=== PATIENT | female | born 1975 | race Caucasian/White ===

== ENCOUNTER 2016-12-05 14:24 | Inpatient (IN) | payer MEDICAID, OTHER ==
--- NOTE | 2016-12-05 14:34 | ED ---
General Adult HPI - General Chief complaint: Psychiatric Symptoms Stated complaint: Petition, Mental Health Time Seen by Provider: 12/05/16 14:26 Source: patient, police, RN notes reviewed - History of Present Illness Initial comments: 41-year-old female presenting for psychiatric evaluation. Patient has history of psychiatric disease. I did discussed with the social services specialist, Frankie, who was involved in the case and wrote the petition. He states he talked with the patient's daughter who states she has history of psychiatric disease. She also has history of extensive substance abuse. Patient today is presenting for likely psychosis. She has apparently been homeless and wandering and stayed with a friend who admits to doing cocaine with her recently. There is concern she may have been using methamphetamine as well. Patient stated to the social services specialist she was hearing voices and was responding to internal stimuli. During my interview with patient she denies any history of psychiatric disease. She denies any drug abuse. She states that she came in because her " emphysema is acting up." She states that "it's gone from 0-64 over the past 3 days." I asked her what this meant, she states that it was an emphysema scale that I should know. She denies taking any medications for any medical problems this time. She is unable to provide any reliable history at this time. - Related Data Home Medications Medication Instructions Recorded Confirmed No Known Home Medications [No 12/05/16 12/05/16 Known Home Medications] Allergies Allergy/AdvReac Type Severity Reaction Status Date / Time codeine Allergy Unknown Verified 12/05/16 15:38 Review of Systems ROS Statement: Those systems with pertinent positive or pertinent negative responses have been documented in the HPI. ROS Other: All systems not noted in ROS Statement are negative. Past Medical History Additional Past Medical History / Comment(s): murmur History of Any Multi-Drug Resistant Organisms: None Reported Past Surgical History: Orthopedic Surgery Additional Past Surgical History / Comment(s): NovaSure, right rotator cuff repair 2 Past Psychological History: Anxiety Smoking Status: Current every day smoker Past Alcohol Use History: Occasional Past Drug Use History: Methamphetamine General Exam - General Exam Comments Initial Comments: General: Awake and Alert. No acute distress. Does not appear acutely ill. Eyes: TEJAL, EOM intact. No nystagmus. No scleral icterus. HENT: Atraumatic, normocephalic. Mucous membranes moist. Trachea midline. Neck: The neck is supple, there is no tenderness or JVD. Cardiovascular: Regular rate and rhythm. No murmur, rub, or gallop is appreciated. Distal pulses intact. Respiratory: Lungs are clear to auscultation bilaterally. Mild wheezes. No rales, rhonchi. No respiratory distress. Gastrointestinal: Soft, Nontender. No rebound or guarding. Non-distended. No masses or organomegaly noted. No CVA tenderness. Musculoskeletal: No tenderness. Normal ROM. No gross deformity. No strength deficits. Neurological: A&Ox3. CN II-XII grossly intact, There are no obvious motor or sensory deficits. Coordination appears grossly intact. Speech is normal. Skin: Skin is warm and dry and no rashes or lesions are noted. Psychiatric: Cooperative. Blunt affect. Delusional with tangential thought process. Appears paranoid. Denies SI/HI or hallucinations at this time, but not trustful of me during interview. Course Vital Signs 12/05/16 12/05/16 12/05/16 14:32 14:56 15:04 Temperature 98.7 F Pulse Rate 99 72 72 Respiratory 16 Rate Blood Pressure 133/83 O2 Sat by Pulse 98 Oximetry Medical Decision Making - Medical Decision Making 41-year-old female presenting for psychiatric evaluation. Per social services specialist, patient has extensive psychiatric history as well as polysubstance abuse history. The patient does not admit to this on her interview. However she does appear to be delusional and paranoid currently. She is having difficulty staying on topic. She is fixated on her emphysema and a scale of 0-100 that I' m not familiar with. I did order a chest x-ray and a breathing treatment for her at this time. Patient states she is homeless but she "has places to go." She denies any homicidal or suicidal ideations this time. She denies any hallucinations. However per social services specialist history she was very paranoid and concerned that voices were being put into her head. CXR no acute process Labwork with mild leukcotysos which is likely reactive and related to methamphetamine use. Also with mild hypoK which was replaced. UDS positive for methamphetamine. negative. Pt medically cleared for behavioral health evaluation. Patient was evaluated by behavioral health social services specialist and deemed a candidate for inpatient psychiatric treatment. Patient was placed on elopement precautions. Clinical certificate was completed by myself. Patient remains acutely delusional and paranoid. Concern for acute psychosis as well as polysubstance abuse. We will continue to monitor the ER pending final disposition and placement. Pt was accepted inpatient and transferred to inpatient psych floor. - Lab Data Result diagrams: 12/05/16 14:56 12/05/16 14:56 Lab Results 12/05/16 12/05/16 12/05/16 Range/Units 14:56 14:56 14:56 WBC 12.2 H (3.8-10.6) k/uL RBC 4.70 (3.80-5.40) m/uL Hgb 12.9 (11.4-16.0) gm/dL Hct 38.7 (34.0-46.0) % MCV 82.3 (80.0-100.0) fL MCH 27.4 (25.0-35.0) pg MCHC 33.3 (31.0-37.0) g/dL RDW 12.7 (11.5-15.5) % Plt Count 263 (150-450) k/uL Neutrophils % 70 % Lymphocytes % 21 % Monocytes % 6 % Eosinophils % 2 % Basophils % 0 % Neutrophils # 8.5 H (1.3-7.7) k/uL Lymphocytes # 2.6 (1.0-4.8) k/uL Monocytes # 0.7 (0-1.0) k/uL Eosinophils # 0.2 (0-0.7) k/uL Basophils # 0.1 (0-0.2) k/uL Sodium 138 (137-145) mmol/L Potassium 3.4 L (3.5-5.1) mmol/L Chloride 100 (98-107) mmol/L Carbon Dioxide 24 (22-30) mmol/L Anion Gap 14 mmol/L BUN 13 (7-17) mg/dL Creatinine 0.63 (0.52-1.04) mg/dL Est GFR (MDRD) Af Amer >60 (>60 ml/min/1.73 sqM) Est GFR (MDRD) Non-Af >60 (>60 ml/min/1.73 sqM) Glucose 92 (74-99) mg/dL Calcium 9.6 (8.4-10.2) mg/dL Total Bilirubin 0.6 (0.2-1.3) mg/dL AST 30 (14-36) U/L ALT 38 (9-52) U/L Alkaline Phosphatase 43 (38-126) U/L Total Protein 7.7 (6.3-8.2) g/dL Albumin 4.6 (3.5-5.0) g/dL Urine Color Urine Appearance (Clear) Urine pH (5.0-8.0) Ur Specific [place] (1.001-1.035) Urine Protein (Negative) Urine Glucose (UA) (Negative) Urine Ketones (Negative) Urine Blood (Negative) Urine Nitrate (Negative) Urine Bilirubin (Negative) Urine Urobilinogen (<2.0) mg/dL Ur Leukocyte Esterase (Negative) Urine RBC (0-5) /hpf Urine WBC (0-5) /hpf Ur Squamous Epith Cells (0-4) /hpf Urine Mucus (None) /hpf Urine HCG, Qual (Not Detectd) Urine Opiates Screen Not Detected (NotDetected) Ur Oxycodone Screen Not Detected (NotDetected) Urine Methadone Screen Not Detected (NotDetected) Ur Propoxyphene Screen Not Detected (NotDetected) Ur Barbiturates Screen Not Detected (NotDetected) U Tricyclic Antidepress Not Detected (NotDetected) Ur Phencyclidine Scrn Not Detected (NotDetected) Ur Amphetamines Screen Not Detected (NotDetected) U Methamphetamines Scrn Detected H (NotDetected) U Benzodiazepines Scrn Not Detected (NotDetected) Urine Cocaine Screen Not Detected (NotDetected) U Marijuana (THC) Screen Not Detected (NotDetected) 12/05/16 12/05/16 Range/Units 14:56 14:56 WBC (3.8-10.6) k/uL RBC (3.80-5.40) m/uL Hgb (11.4-16.0) gm/dL Hct (34.0-46.0) % MCV (80.0-100.0) fL MCH (25.0-35.0) pg MCHC (31.0-37.0) g/dL RDW (11.5-15.5) % Plt Count (150-450) k/uL Neutrophils % % Lymphocytes % % Monocytes % % Eosinophils % % Basophils % % Neutrophils # (1.3-7.7) k/uL Lymphocytes # (1.0-4.8) k/uL Monocytes # (0-1.0) k/uL Eosinophils # (0-0.7) k/uL Basophils # (0-0.2) k/uL Sodium (137-145) mmol/L Potassium (3.5-5.1) mmol/L Chloride (98-107) mmol/L Carbon Dioxide (22-30) mmol/L Anion Gap mmol/L BUN (7-17) mg/dL Creatinine (0.52-1.04) mg/dL Est GFR (MDRD) Af Amer (>60 ml/min/1.73 sqM) Est GFR (MDRD) Non-Af (>60 ml/min/1.73 sqM) Glucose (74-99) mg/dL Calcium (8.4-10.2) mg/dL Total Bilirubin (0.2-1.3) mg/dL AST (14-36) U/L ALT (9-52) U/L Alkaline Phosphatase (38-126) U/L Total Protein (6.3-8.2) g/dL Albumin (3.5-5.0) g/dL Urine Color Light Yellow Urine Appearance Cloudy H (Clear) Urine pH 5.5 (5.0-8.0) Ur Specific [place] 1.006 (1.001-1.035) Urine Protein Negative (Negative) Urine Glucose (UA) Negative (Negative) Urine Ketones Negative (Negative) Urine Blood Small H (Negative) Urine Nitrate Negative (Negative) Urine Bilirubin Negative (Negative) Urine Urobilinogen <2.0 (<2.0) mg/dL Ur Leukocyte Esterase Negative (Negative) Urine RBC 2 (0-5) /hpf Urine WBC 1 (0-5) /hpf Ur Squamous Epith Cells 5 H (0-4) /hpf Urine Mucus Rare H (None) /hpf Urine HCG, Qual Not Detected (Not Detectd) Urine Opiates Screen (NotDetected) Ur Oxycodone Screen (NotDetected) Urine Methadone Screen (NotDetected) Ur Propoxyphene Screen (NotDetected) Ur Barbiturates Screen (NotDetected) U Tricyclic Antidepress (NotDetected) Ur Phencyclidine Scrn (NotDetected) Ur Amphetamines Screen (NotDetected) U Methamphetamines Scrn (NotDetected) U Benzodiazepines Scrn (NotDetected) Urine Cocaine Screen (NotDetected) U Marijuana (THC) Screen (NotDetected) - Radiology Data Radiology results: report reviewed, image reviewed Disposition Clinical Impression: Acute psychosis, Paranoia, Methamphetamine abuse Disposition: ADMITTED IP TO THIS [facility] Condition: Stable
[2016-12-05] MEDS ORDERED: IPRATROPIUM-ALBUTEROL 3 ML NEB INHALATION STA (14:47)
[2016-12-05 15:08] LABS: Basophils # (A) 0.1 k/uL (0-0.2); Basophils % (A) 0 %; CH 27.8; CHCM 33.8; Eosinophils # (A) 0.2 k/uL (0-0.7); Eosinophils % (A) 2 %; HCT 38.7 % (34.0-46.0); HDW 2.29; HGB 12.9 gm/dL (11.4-16.0); Luc # (Auto) 0.19; Luc % (Auto) 2; Lymphocytes # (A) 2.6 k/uL (1.0-4.8); Lymphocytes % (A) 21 %; MCH 27.4 pg (25.0-35.0); MCHC 33.3 g/dL (31.0-37.0); MCV 82.3 fL (80.0-100.0); Mean Platelet Volume 7.3; Monocytes # (A) 0.7 k/uL (0-1.0); Monocytes % (A) 6 %; Neutrophils # (A) 8.5 k/uL (1.3-7.7); Neutrophils % (A) 70 %; RDW 12.7 % (11.5-15.5); WBC 12.2 k/uL (3.8-10.6); WBC (Perox) 12.28
[2016-12-05 15:17] LABS: ALT 38 U/L (9-52); AST 30 U/L (14-36); Alkaline Phosphatase 43 U/L (38-126); Anion Gap 14 mmol/L; Blood Urea Nitrogen 13 mg/dL (7-17); Calcium 9.6 mg/dL (8.4-10.2); Carbon Dioxide 24 mmol/L (22-30); Chloride 100 mmol/L (98-107); Glucose 92 mg/dL (74-99); Non-African American GFR(MDRD) >60 (>60 ml/min/1.73 sqM); Potassium 3.4 mmol/L (3.5-5.1); Sodium 138 mmol/L (137-145); Total Bilirubin 0.6 mg/dL (0.2-1.3); Total Protein 7.7 g/dL (6.3-8.2)
--- NOTE | 2016-12-05 15:41 | XR ---
EXAMINATION TYPE: XR chest 2V DATE OF EXAM: 12/05/2016 3:28 PM COMPARISON: NONE HISTORY: Asthma. Chest pain TECHNIQUE: Frontal and lateral views of the chest are obtained. FINDINGS: Heart and mediastinum are normal. Lungs are clear. Diaphragm is normal. Bony thorax is int act. IMPRESSION: Normal chest
[2016-12-05] MEDS ORDERED: POTASSIUM CHLORIDE ER 20 MEQ TAB.ER PO STA (15:53)
[2016-12-05] MEDS ORDERED: MAG HYDROX/AL HYDROX/SIMETH 30 ML CUP PO PRN (17:15)
[2016-12-05 17:40] LABS: Appearance,Urine Cloudy (Clear); Bilirubin,Urine Negative (Negative); Glucose,Urine (UA) Negative (Negative); Ketones,Urine Negative (Negative); Leukocyte Esterase,Urine Negative (Negative); Mucus,Urine Rare /hpf; Nitrite,Urine Negative (Negative); PH, Urine 5.5 (5.0-8.0); Particle Count 4627; Protein,Urine Negative (Negative); RBC,Urine 2 /hpf (0-5); Specific Gravity,Urine 1.006 (1.001-1.035); Squamous Epithelial Cell,Urine 5 /hpf (0-4); UA Billing (MACRO vs. MICRO) MICRO; Urobilinogen,Urine <2.0 mg/dL (<2.0); WBC,Urine 1 /hpf (0-5)
[2016-12-05] MEDS: OLANZapine 5 MG TAB PO SCH ×2 (20:22→21:05)
[2016-12-05] MEDS ORDERED: ACETAMINOPHEN TAB 325 MG TAB PO PRN (20:25)
[2016-12-06] MEDS: OLANZapine 5 MG TAB PO SCH ×2 (08:48→21:10)
--- NOTE | 2016-12-06 10:38 | P.HPMEDMHU ---
History of Present Illness H&P Date: 12/06/16 Chief Complaint: Pschosis This is a 41-year-old female with no primary care physician and no previous medical history except for chronic drug use and dependence as well as a chronic substance abuse including methamphetamine, patient was brought into the emergency department at [facility] because she stated that she has been depressed and she has been having racing thoughts and she was very unstable and according to the daughter based on the conversation that happened in the emergency department with the emergency physician she had a long history of psychiatric illness with significant substance abuse and patient turned herself and for help after she got out her daughter's house that she was living with. Patient is doing okay she appears to have no acute distress at this time. She is complaining of some shortness of breath and she is asking for nebulized treatment. Review of Systems Constitutional: Denies chills, Denies chronic headaches, Denies lethargy, Denies malaise, Denies weight gain, Denies weight loss Eyes: denies blurred vision, denies bulging eye, denies decreased vision Ears: deny: decreased hearing Ears, nose, mouth and throat: Denies dysphagia, Denies neck lump, Denies swelling in throat, Denies sore throat Cardiovascular: Reports shortness of breath, Denies chest pain, Denies decreased exercise tolerance, Denies dyspnea on exertion, Denies syncope Respiratory: Denies congestion, Denies cough, Denies cough with sputum, Denies home oxygen, Denies sleep apnea, Denies snoring, Denies wheezing Gastrointestinal: Denies abdominal pain, Denies bloating, Denies BRBPR, Denies hematemesis, Denies hematochezia, Denies melena, Denies nausea, Denies vomiting Genitourinary: Denies dysuria, Denies hematuria Musculoskeletal: Denies myalgias Musculoskeletal: absent: ankle pain, ankle stiffness, ankle swelling, elbow pain , elbow stiffness, elbow swelling, foot pain, foot stiffness, foot swelling, hand pain, hand stiffness, hand swelling, hip pain, hip stiffness, hip swelling , knee pain, knee stiffness, knee swelling, shoulder pain, shoulder stiffness, shoulder swelling, wrist pain, wrist stiffness, wrist swelling Integumentary: Denies pruritus, Denies rash Neurological: Denies numbness, Denies weakness Psychiatric: Reports anxiety, Reports depression, Reports difficulty concentrating, Reports irritability, Reports sadness/tearfulness, Reports sleep disturbances, Denies suicidal ideation Endocrine: Denies fatigue, Denies weight change Past Medical History Additional Past Medical History / Comment(s): Chronic tobacco use and dependence , substance abuse. History of Any Multi-Drug Resistant Organisms: None Reported Past Surgical History: Orthopedic Surgery Additional Past Surgical History / Comment(s): NovaSure ablation in 2011, right rotator cuff repair 2, tubal ligation, basal cell cancer removed from the left side of the Past Psychological History: Anxiety Smoking Status: Current every day smoker (Patient smokes about half a pack every day she started smoking when she was 59-year-old. She smokes marijuana as well. She stated that she is to have a card .) Past Alcohol Use History: Occasional Past Drug Use History: Methamphetamine - Past Family History Mother Family Medical History: No Reported History (Mother is a 55-year-old has no major medical problems she did not want to talk about her mother.) Father Family Medical History: No Reported History (Father is 58-year-old no major medical problems.) Sister(s) Family Medical History: No Reported History (Patient has one sister no major medical problems) Daughter(s) Family Medical History: No Reported History (Patient has 2 daughters no major medical problems) Son(s) Family Medical History: No Reported History (Patient has one son no major medical problems) Medications and Allergies Home Medications Medication Instructions Recorded Confirmed Type No Known Home Medications [No 12/05/16 12/05/16 History Known Home Medications] Allergies Allergy/AdvReac Type Severity Reaction Status Date / Time codeine Allergy Unknown Verified 12/05/16 15:38 Physical Exam Vitals: Vital Signs Temp Pulse Pulse Pulse Resp BP BP 12/06/16 06:42 97.9 F 82 16 96/57 12/05/16 18:49 98.1 F 98 15 12/05/16 17:51 97.9 F 78 16 135/70 BP Pulse Ox 12/06/16 06:42 12/05/16 18:49 96/71 97 12/05/16 17:51 99 Intake and Output 12/05/16 12/06/16 12/06/16 22:59 06:59 14:59 Other: Weight 56.6 kg - Constitutional General appearance: no acute distress, thin - EENT Eyes: anicteric sclerae, PERRLA, no ptosis, no scleral icterus, normal appearance ENT: hearing grossly normal, NA/AT, normal oropharynx, no thrush Ears: bilateral: normal - Neck Neck: no lymphadenopathy, normal ROM, no rigidity, no stridor, no thyromegaly Carotids: bilateral: upstroke normal Thyroid: bilateral: normal size - Respiratory Respiratory: bilateral: diminished, negative: dullness, rales, rhonchi, wheezing , prolonged expiration - Cardiovascular Rhythm: regular Heart sounds: normal: S1, S2 Abnormal Heart Sounds: no systolic murmur, no S3 Gallop, no S4 Gallop, no click - Gastrointestinal General gastrointestinal: soft, no splenomegaly, no tenderness, no umbilical hernia, no ventral hernia - Integumentary Integumentary: normal, normal turgor - Neurologic Neurologic: CNII-XII intact - Musculoskeletal Musculoskeletal: gait normal, strength equal bilaterally - Psychiatric Psychiatric: A&O x's 3, no appropriate affect, no intact judgment & insight Cranial Nerve Examination - Cranial Nerves Cranial Nerve I- Olfactory: Intact Cranial Nerve II- Optic: Intact Cranial Nerve III- Oculomotor: Intact Cranial Nerve IV- Trochlear: Intact Cranial Nerve V- Trigeminal: Intact Cranial Nerve - Abducens: Intact Cranial Nerve VII- Facial: Intact Cranial Nerve VIII- Auditory: Intact Cranial Nerve IX- Glossopharyngeal: Intact Cranial Nerve X- Vagus: Intact Cranial Nerve XI- Accessory: Intact Cranial Nerve XII- Hypoglossal: Intact Results CBC & Chem 7: 12/05/16 14:56 12/05/16 14:56 Assessment and Plan Plan: Assessment and plan: 1. Psychosis possibly related to substance abuse. Admitted to the mental health unit, patient will be evaluated by psychiatry. Patient was already started on Zyprexa 5 mg orally twice every day. 2. Chronic tobacco use and dependence. Smoking cessation and counseling an increased risk of CAD, CVA, and malignancy, start the patient on DuoNeb 3 mg nebulization three times every day. 3. Substance abuse. Abstinence from amphetamine. 4. Thanks for the consult we will follow with you.
[2016-12-06] MEDS: IPRATROPIUM-ALBUTEROL 3 ML NEB INHALATION PRN ×2 (11:10→21:23)
--- NOTE | 2016-12-06 13:56 | HP ---
DATE OF ADMISSION: 12/05/2016 DATE OF SERVICE: 12/05/2016 IDENTIFYING DATA: Patient is a 41-year-old female, 1975. She is homeless. She apparently was brought to the emergency room for evaluation by police. Her daughter was with her for part of the ER evaluation. CHIEF COMPLAINT: Patient has had long-term psychiatric and substance abuse issues. She apparently is homeless. She had been doing abusive substances recently including cocaine and methamphetamine within 1 or 2 days of admission. She was appearing confused and psychotic. HISTORY OF PRESENTING ILLNESS: Patient is not able to provide a reliable history. Information that was presented to me in the emergency room was that the patient is homeless. She apparently had gone into someone's home that she described as "friends." There is question as to whether she actually knew the people in the home. Apparently, the people called police and she was brought to the hospital. She was disorganized in her thoughts. She was confused. She appeared to be responding to internal stimuli. She apparently has been homeless for a period of time and recently was wandering in the community. A friend of hers did cocaine with her in the last couple days. There was a suggestion that she may have used methamphetamine which it was confirmed on the urine drug screen. She was appearing to hear voices and responding to some internal stimuli. Her responses to basic questions were vague and disconnected. Apparently her daughter had provided information to the emergency room that she has a long history of psychiatric and substance abuse issues. No further details were provided. She is admitted for further evaluation. SUBSTANCE USE HISTORY: As above. PAST MEDICAL HISTORY: Patient makes repeat references to having emphysema though there is no confirmation of this. Further medical history, review of systems and physical exam as per Dr. Jones. FAMILY AND SOCIAL HISTORY: No information available. MENTAL STATUS EXAM: Patient was in the bed in the emergency room. She was sitting up, she appeared disheveled. Eye contact was fair. She was restless. She had a somewhat frightened distressed look. She responded to questions, though her answers were vague and at times disconnected from the questions asked. She was ambulatory, she was able to walk to the bathroom and back. She was able to comprehend information that I presented her in regards to the admission. She otherwise was unable to provide any coherent information about recent or remote events. Her affect was intense. Her mood depressed. She was significantly distressed. She did cooperate with the interview and plans to be moved to the psychiatric unit, though initially she was resistant to any intervention. There was no immediate evidence for thought disorder. There was no indication for thoughts of harm to self or others. On cognitive exam, patient was not able to cooperate or respond to any questions. She was reasonably aware of her immediate surroundings. She could comprehend information. She could follow basic directions. She was able to find herself to the bathroom and back. She was ambulatory without clear gait disturbance. ASSESSMENT: This 41-year-old female apparently has significant psychiatric issues, though details are unavailable. She had recent use of at least methamphetamine and possibly cocaine as well. There are some indications that she may have psychotic symptoms, social support network is uncertain. Strengths include her ability to cooperate and comprehend information provided to her. Weakness includes disordered thinking. DIAGNOSES: 1. Acute psychotic episode. 2. Methamphetamine abuse, rule out cocaine abuse. RECOMMENDATIONS: Patient will be admitted for comprehensive medical, psychiatric and psychosocial evaluation. Will make efforts to engage the patient in individual and group therapeutic activities. The patient is showing significant restlessness and disordered thinking. I will start the patient on Zyprexa 5 mg twice a day. The aim of Zyprexa is to help reduce psychotic symptoms and improve thought process. We will monitor closely for any general substance use withdrawal issues and make efforts to gather further history. We will focus on stabilization and discharge planning.
[2016-12-07] MEDS: OLANZapine 5 MG TAB PO SCH ×2 (08:57→20:43)
--- NOTE | 2016-12-07 08:59 | P.PN ---
Progress Note - Text Interval history: The patient is found in her room she follows me to an interview room. She was admitted yesterday to the mental health unit through the emergency room. Dr. Diana evaluated the patient yesterday. I did review documentation from her last admission here in March 2016. She states that she is previously diagnosed with bipolar disorder Dr. Garcia had diagnosed her with delusional disorder. She states that she presents to the hospital this time by the police as she was disruptive and was demonstrating odd behavior. She states she does not recall what she was saying and she becomes visibly upset when I ask her to describe the presenting symptoms. She was positive for methamphetamine and she reports doing at least 2 lines of methamphetamine recently. She reports she has not been sleeping and eating and her moods and depressed. She reports no acute suicidal ideation. The patient is somewhat guarded and defensive during the interview. She is endorsing no other symptoms but is likely under reporting them. Mental status exam: The patient is alert she is mildly disheveled eye contact is intermittent. There are portions were she goes several minutes without making eye contact and looks away to the left. Speech is fluent and spontaneous mildly pressured at times. Affect demonstrates some lability as she is easily tearful several times throughout the session, appears defensive at times, and can demonstrate smiling at times. She reports a depressed mood, she denies having any acute suicidal or homicidal ideation. She is endorsing no other symptoms but there appears to be a likely possibility of psychotic symptoms. Insight and judgment are impaired. She is oriented to person place and date. Plan: The patient will continue on the Zyprexa 5 mg twice daily which was started yesterday. The patient was stabilized on this medication during her last hospitalization. She requires continued psychiatric evaluation. She is encouraged to participate in the milieu we will monitor for safety. Social work will meet with her for a psychosocial assessment. She states that she is homeless and has no outpatient psychiatric care arranged. It appears after her last hospitalization she went to [place]. Lab values reviewed vital signs reviewed.
--- NOTE | 2016-12-07 11:55 | PN ---
DATE OF SERVICE: 12/06/2016. CHIEF COMPLAINT: Patient has had long-term psychiatric and substance abuse issues. She apparently is homeless. She had been doing abusive substances recently including cocaine and methamphetamine within 1 or 2 days of admission. She was appearing confused and psychotic. INTERVAL HISTORY: Patient had a quiet evening last night. Most of the she stayed in her room. She slept fairly well. Today, again she spent most of her time in her room. She comes out for meals. She hasn't attended groups. Yesterday she had made some statements that were delusional including the idea that there was a cell phone implanted in someone. It wasn't clear what the specifics were of that. She had disorganized thoughts. Today she is doing better. She will respond appropriately to staff. She seems to be a little calmer overall. In review of history, she day psychiatric admission here March 29, 2016, during that admission and it was noted that she was admitted on petition. She had made statements about wanting to harm something or herself. She apparently was in quite agitated state, on admission she had thrown a television because it was not working. She had smashed mirrors and other things in her room. She was heard in her room yelling and threatening. She was making statements that her mother and father were not going to kill her. She had locked herself in her bedroom at one point. Police were called. She has other disorganized behavior. Effexor that for the she had locked herself in her bedroom it but it was not on the unit that he take that part out. According to the admission note, she reported no prior psychiatric hospitalization or other mental health intervention. Apparently going back to around age 14 she got into significant drug use. She apparently has had long-term substance abuse issues, primarily stimulants, though she has had at least one DUI and had an accident while intoxicated relating to a 10 month [facility] term. She was diagnosed with delusional disorder. When I talked to the patient today, she initially was denying any significant problems, though she became distressed and was unable to continue the conversation. There is no change in her general health. She tolerates her psychotropic medications. MENTAL STATUS: Patient was in her room lying down. When I came in, she set up on the edge of her bed saying she was is fine. She looked relax she smiled a little. As I started asking questions she made some comments that she did not want to go back in her history that she could only look forward. When I made an effort to explain the importance of understanding some of her history she became upset and angry. She said she would only talked later once she was fully and could calm herself down. He essentially requested that I end the interview . It is noted that I came back later to review issues about involuntary hospitalization versus her sign a voluntary admission form. She said she understood the issues and was comfortable with signing voluntary forms. She understood the 72 hour requirement. She had an intense affect during most of the interview. Her mood was dysphoric. She seemed significantly distressed. She was able to calm herself for brief periods during interviews. ASSESSMENT: I will continue the current diagnosis and treatment plan. Continue psychotropic medications the same. We will continue to focus on stabilization and discharge planning
[2016-12-07] MEDS: MAGNESIUM HYDROXIDE 2,400 MG/10 ML CUP PO PRN (22:18)
[2016-12-08] MEDS: OLANZapine 5 MG TAB PO SCH ×2 (08:09→22:03)
[2016-12-08] MEDS: MAGNESIUM HYDROXIDE 2,400 MG/10 ML CUP PO PRN (08:10)
[2016-12-08] MEDS ORDERED: SENNOSIDES-DOCUSATE SODIUM 1 EACH TAB PO STA (10:28)
[2016-12-08] MEDS ORDERED: SODIUM CHLORIDE 0.65% NASAL SPRAY 44 ML BTL NASAL PRN (10:28)
--- NOTE | 2016-12-08 10:29 | P.PN ---
Progress Note - Text Interval history: The patient is found in group she follows me to an interview room. She reports that she continues to feel sad she is frequently tearful. She struggling with feelings of guilt and remorse. She has had phone contact with her daughter. She is aware that she will need [facility] placement upon discharge as she is not able to stay with family. We spent several minutes discussing past mood symptoms. Clearly she has had episodes of depression in the past she does not endorse full episodes of hypomania or lucille previously. She does endorse some racing thoughts but it seems more related to depressive feelings and possibly anxiety. She has not been on an antidepressant that she can recall. She has been cooperative with the Zyprexa and we discussed that medication further including its purpose. We discussed her use of substances including recent use of methamphetamine. She does not wish to participate in inpatient chemical dependency treatment. Mental status exam: The patient is alert she is dressed in her own clothing she is mildly disheveled. Her mood is depressed she is tearful throughout the session. She is cooperative. Speech is spontaneous fluent nonpressured. There is no current evidence of hypomania or lucille. She is endorsing no current auditory or visual hallucinations she is endorsing no specific delusions. Insight and judgment slowly improving possibly impaired regarding her substance use. She is oriented to person place and date. She describes no homicidal ideation. She reports feeling safe in the hospital. Plan: The patient is going to be continued on the Zyprexa we will initiate Lexapro 10 mg daily for depressive and anxiety symptoms. We discussed the risks of eliciting undiagnosed hypomanic or manic symptoms. We discussed potential benefits and side effects of Lexapro. We will continue to monitor her for safety. She requires continued evaluation and treatment on the mental health unit. She may be appropriate for discharge later in the week. Vital signs reviewed.
[2016-12-08] MEDS: SENNOSIDES-DOCUSATE SODIUM 1 EACH TAB PO SCH (12:16)
[2016-12-08] MEDS: ESCITALOPRAM 10 MG TAB PO SCH (12:16)
[2016-12-09 07:29] VITALS: RESP 16
[2016-12-09] MEDS: ESCITALOPRAM 10 MG TAB PO SCH (08:45)
[2016-12-09] MEDS: OLANZapine 5 MG TAB PO SCH ×2 (08:45→20:38)
--- NOTE | 2016-12-09 09:33 | P.PN ---
Progress Note - Text Interval history: The patient is found in her room she follows me to an interview room. She states that her morning was off to a rough start as she felt she had a unpleasant encounter with staff this morning. We spent some time utilizing a thought record as part of CBT to further process those feelings and thoughts. We discussed her initial automatic thoughts alternative thoughts and how that would change her emotional response. We reviewed a few other examples in a similar fashion. She states yesterday went well she attended groups. She has been compliant with her medication she is reporting no side effects to the recently added Lexapro. She voices future oriented thinking in terms of needing to gain housing and employment. She is hoping to mend relationships with her children. Mental status exam: The patient is alert she seated calmly in her chair eye contact is appropriate. She is appropriately dressed in her own clothing she is wearing eyeglasses. She states her mood is "getting better" affect is more appropriately expressive. She is reporting no acute suicidal or homicidal ideation intent or plan. She is reporting no acute psychosis there is no evidence of hypomania or lucille. Insight and judgment are improving. She remains oriented to person place and date. Plan: The patient appears to be clinically stabilizing we will evaluate her for another 24 hours and I anticipate discharging her tomorrow. Social work will be asked to arrange senior care placement. She will continue on Zyprexa and Lexapro. We discussed the importance of abstaining from substances upon discharge. She continues to not want to attend inpatient chemical dependency treatment. Vital signs reviewed. We will continue to monitor her for safety.
[2016-12-10] MEDS: ESCITALOPRAM 10 MG TAB PO SCH (08:42)
[2016-12-10] MEDS: OLANZapine 5 MG TAB PO SCH ×2 (08:42→20:44)
[2016-12-10] MEDS: SENNOSIDES-DOCUSATE SODIUM 1 EACH TAB PO SCH (08:42)
[2016-12-10 10:01] VITALS: BMI 21.2
--- NOTE | 2016-12-10 11:13 | P.PN ---
Progress Note - Text Interval history: The patient's is found in her room she follows me to an interview room. Staff report that yesterday she demonstrated some episodes of confusion and mild agitation. The patient agrees that that happened but feels today is going better. She states she feels frustrated not knowing where she is going to be staying upon discharge as one skilled nursing told her yesterday they could not accommodate her. She reports that she slept last evening she's been eating. She had a pleasant visit from her daughter yesterday. She has no questions related to her medications. Mental status exam: The patient is alert she seated calmly eye contact is appropriate. Speech is fluent and spontaneous nonpressured. Process remains linear. She is briefly tearful when discussing her fearfulness of not having anywhere to stay. She is endorsing no acute suicidal or homicidal ideation. She is reporting no hallucinations she reports feeling safe. Insight and judgment are improving. She remains oriented to person place and date. Plan: The patient will continue on her current psychotropic medications. We will evaluate her for another 24 hours and consider discharging her tomorrow given yesterday's change in behavior. We anticipate she will be placed at a skilled nursing upon discharge. We will continue to monitor her for safety. Vital signs reviewed.
[2016-12-11 07:15] VITALS: TEMP 98.2
--- NOTE | 2016-12-11 08:34 | P.DS ---
Providers Date of admission: 12/05/16 17:22 Expected date of discharge: 12/11/16 Attending physician: Petros Tejeda Consults: 12/08/16 09:55 Consult Physician Routine Consulting Provider: Drake Jones Consult Reason/Comments: constipation and dry nasal Do you want consulting provider notified?: Yes Primary care physician: Stated None - Discharge Diagnosis(es) (1) Major depressive disorder, recurrent, severe with psychotic features Current Visit: Yes Status: Acute Priority: High (2) Stimulant use disorder Current Visit: Yes Status: Acute Priority: High Hospital Course: Brief summary of admission note: This patient is a 41-year-old female who was admitted to the mental health unit through the emergency room for acute agitation and psychosis. The patient was brought into the hospital by the police. She was found to be disorganized confused and appeared to be responding to hallucinations. There is report that the patient had used cocaine and methamphetamine her urine drug screen was positive for methamphetamine. For full details please refer to the psychiatric evaluation dated 12/05/2016. Summary of hospital course: The patient was initially admitted by . He initiated Zyprexa 5 mg twice daily. I assumed care of the patient they subsequent Wednesday. The patient's psychotic symptoms seem to be improving we discussed that she has dealt with several major depressive episodes in the past. To address this we added Lexapro titrating to 10 mg daily. The patient did have some episodes of confusion and mild agitation she required no use of seclusion or restraint. She did undergo a routine medical consultation. She was able to tolerate the Lexapro and Zyprexa without any complaint of side effect. She was previously treated with Zyprexa during another psychiatric hospitalization. The patient did not want to participate in any inpatient chemical dependency treatment. She is homeless and has been making arrangements to attend a nursing home upon discharge. Social work has been in contact with the patient's daughter. The patient was refusing an in person support meeting on the mental health unit. Mental status exam: The patient is alert she presents pleasant and cooperative she is dressed in her own clothing hygiene grooming are good. Speech is fluent spontaneous nonpressured. She reports her mood is "good". She denies having any hopelessness thinking or any suicidal or homicidal ideation intent or plan. She is reporting no hallucinations she is reporting no specific delusions. There has been no evidence of any psychotic symptoms over the past 2 days. She demonstrates no verbal or physical aggressiveness. Process is linear and goal- directed there is no evidence of tangential thinking loose associations or flight of ideas. Cognitively she remains alert and oriented to person place and date. Insight and judgment improving. Affect is appropriately expressive. Impressions 1. Major depressive disorder recurrent severe with psychosis, rule out psychosis secondary to recent methamphetamine use, stimulant use disorder 2. Psychosocial dysfunction secondary to ongoing psychiatric symptoms including substance use Plan: The patient's will be discharged mental health unit today she plans on residing at a nursing home upon discharge. She will continue on Zyprexa 5 mg twice daily Lexapro 10 mg daily. Social work will arrange outpatient mental health follow-up. The patient does not wish to participate in inpatient chemical dependency treatment chemical dependency issues will be addressed in the outpatient setting. There is no medications prescribed to her at this time to address her chemical dependency issues. We discussed that if she uses illicit drugs her safety risk is elevated. She is reporting no suicidal ideation there is no imminent safety risk she is appropriate for transition to outpatient care. She is endorsing no access to firearms. She is demonstrating that she is easily able to participate in her activities of daily living. She states that she is wanting to engage in outpatient mental health services. Patient Condition at Discharge: Stable Plan - Discharge Summary New Discharge Prescriptions: Escitalopram [Lexapro] 10 mg PO DAILY #30 tab OLANZapine [ZyPREXA] 5 mg PO BID #60 tab Discharge Medication List Escitalopram [Lexapro] 10 mg PO DAILY #30 tab 12/11/16 [Rx] OLANZapine [ZyPREXA] 5 mg PO BID #60 tab 12/11/16 [Rx] Follow up Appointment(s)/Referral(s): [facility] [Outside] - 12/15/16 8:30 am (12/15/16 at 830 with [facility]) None,Stated [Primary Care Provider] - 1-2 days
[2016-12-11] MEDS: SENNOSIDES-DOCUSATE SODIUM 1 EACH TAB PO SCH (08:36)
[2016-12-11] MEDS: OLANZapine 5 MG TAB PO SCH (08:37)
[2016-12-11] MEDS: ESCITALOPRAM 10 MG TAB PO SCH (08:37)
[2016-12-11 09:08] VITALS: BP 115/64; PULSE 99
== END 2016-12-11 14:00 | disposition home or self-care (01) | DRG 885 ==
LOC: EC 14:24 → 3MHU 17:22
PROVIDERS: ADMIT Psychiatry & Neurology Psychiatry; ATTEND Psychiatry & Neurology Psychiatry
DX: F33.3 Major depressive disorder, recurrent, severe with psychotic symptoms (principal); F15.10 Other stimulant abuse, uncomplicated; E87.6 Hypokalemia; F17.200 Nicotine dependence, unspecified, uncomplicated; Z59.0 Homelessness; F59 Unspecified behavioral syndromes associated with physiological disturbances and physical factors
CPT/HCPCS: 36415; 71020; 80053; 80306; 81001; 81025; 82075; 84443; 85025; 94640; 99285

== ENCOUNTER 2018-07-24 00:21 | Emergency (ER) | payer OTHER ==
[2018-07-24 00:25] VITALS: BP 111/75; PULSE 79; RESP 18; TEMP 98
--- NOTE | 2018-07-24 03:07 | ED ---
Psych HPI - General Chief Complaint: Psychiatric Symptoms Stated Complaint: Mental Health Time Seen by Provider: 07/24/18 00:25 Source: patient Mode of arrival: ambulatory - History of Present Illness Initial Comments: This patient is a 42-year-old woman who presents to be evaluated for worsening depression. The patient relates that she had recently become homeless, and then tonight she was [facility] the [facility]. The patient states she is depressed that she has nowhere to go. She does have underlying history of depression but states not taking any medicine. MD Complaint: feels depressed Onset/Timin -: week(s) Associated Psychiatric Symptoms: depression History of same: Yes Quality: getting worse Improves With: none Worsens With: none Context: significant life stressor Associated Symptoms: denies other symptoms - Related Data Previous Rx's Medication Instructions Recorded Escitalopram [Lexapro] 10 mg PO DAILY #30 tab 12/11/16 OLANZapine [ZyPREXA] 5 mg PO BID #60 tab 12/11/16 Allergies Allergy/AdvReac Type Severity Reaction Status Date / Time codeine Allergy Unknown Verified 07/24/18 00:24 Review of Systems ROS Statement: Those systems with pertinent positive or pertinent negative responses have been documented in the HPI. ROS Other: All systems not noted in ROS Statement are negative. Constitutional: Denies: fever Respiratory: Denies: cough, dyspnea Cardiovascular: Denies: chest pain, palpitations Gastrointestinal: Denies: abdominal pain, vomiting, diarrhea Genitourinary: Denies: dysuria, hematuria Musculoskeletal: Denies: back pain Neurological: Denies: headache Psychiatric: Reports: depression. Denies: auditory hallucinations, visual hallucinations, homicidal thoughts, suicidal thoughts Past Medical History Past Medical History: No Reported History Additional Past Medical History / Comment(s): Chronic tobacco use and dependence , substance abuse. History of Any Multi-Drug Resistant Organisms: None Reported Past Surgical History: Orthopedic Surgery, Tubal Ligation Additional Past Surgical History / Comment(s): NovaSure ablation in 2011, right rotator cuff repair 2, tubal ligation, basal cell cancer removed from the left side of the Past Psychological History: Anxiety, Depression Smoking Status: Current every day smoker Past Alcohol Use History: Occasional Past Drug Use History: Marijuana - Past Family History Mother Family Medical History: No Reported History Father Family Medical History: No Reported History Sister(s) Family Medical History: No Reported History Daughter(s) Family Medical History: No Reported History Son(s) Family Medical History: No Reported History General Exam Limitations: no limitations General appearance: alert, in no apparent distress Head exam: Present: atraumatic, normocephalic Eye exam: Present: normal appearance Respiratory exam: Present: normal lung sounds bilaterally. Absent: respiratory distress, wheezes, rales, rhonchi, stridor Cardiovascular Exam: Present: regular rate, normal rhythm, normal heart sounds. Absent: systolic murmur, diastolic murmur, rubs, gallop GI/Abdominal exam: Present: soft. Absent: distended, tenderness, guarding, rebound, rigid Extremities exam: Present: normal inspection, normal capillary refill. Absent: pedal edema, calf tenderness Neurological exam: Present: alert, normal gait Psychiatric exam: Present: normal affect, depressed. Absent: agitated, anxious , flat affect, manic, homicidal ideation, suicidal ideation Skin exam: Present: warm, dry, intact, normal color. Absent: rash Course Vital Signs 07/24/18 00:23 Temperature 98 F Pulse Rate 79 Respiratory 18 Rate Blood Pressure 111/75 O2 Sat by Pulse 99 Oximetry Disposition Clinical Impression: Adjustment reaction Disposition: HOME SELF-CARE Condition: Good Instructions: Mood Disorders (ED) Is patient prescribed a controlled substance at d/c from ED?: No Referrals: Lexie Fisher MD [Primary Care Provider] - 1-2 days
[2018-07-24 03:22] LABS: Amphetamine Screen,Urine Detected (NotDetected); Barbiturate Screen,Urine Not Detected (NotDetected); Benzodiazepines Screen,Urine Not Detected (NotDetected); Cocaine Screen,Urine Not Detected (NotDetected); Methadone Screen, Urine Not Detected (NotDetected); Opiate Screen,Urine Not Detected (NotDetected); Oxycodone Screen, Urine Not Detected (NotDetected); Phencyclidine Screen,Urine Not Detected (NotDetected); Tricyclic Antidepressant,Urine Not Detected (NotDetected); Urn Cannabinoid Scrn Detected (NotDetected)
== END 2018-07-24 04:26 | disposition home or self-care (01) ==
LOC: EC 00:21
DX: F43.22 Adjustment disorder with anxiety (principal); F32.9 Major depressive disorder, single episode, unspecified; F17.200 Nicotine dependence, unspecified, uncomplicated; Z59.0 Homelessness; Z88.5 Allergy status to narcotic agent
CPT/HCPCS: 80306; 82075; 99284

== ENCOUNTER → 2020-08-30 | Outpatient (CLI) | payer BC ==
--- NOTE | 2020-09-03 08:22 | MM ---
Reason for exam: screening (asymptomatic). Last mammogram was performed 11 years and 7 months ago. History: Patient is postmenopausal. Family history of premenopausal breast cancer in paternal cousin at age 30. Took hormonal contraceptives for 5 years. Physical Findings: A clinical breast exam by your physician is recommended on an annual basis and results should be correlated with mammographic findings. MG Screening Mammo w CAD Bilateral CC and MLO view(s) were taken. Prior study comparison: February 05, 2009, bilateral digital screening mammogram. The breast tissue is heterogeneously dense. This may lower the sensitivity of mammography. No significant changes when compared with prior studies. ASSESSMENT: Negative, BI-RAD 1 RECOMMENDATION: Routine screening mammogram of both breasts in 1 year.
== END | disposition home or self-care (01) ==
LOC: RADMAMWWP 14:06
PROVIDERS: ATTEND Family Medicine
DX: Z12.31 Encounter for screening mammogram for malignant neoplasm of breast (principal)
CPT/HCPCS: 77067

== ENCOUNTER → 2020-09-06 | Day surgery (SDC) | payer BC, OTHER ==
[2020-09-04 15:57] VITALS: BMI 25.7
[~2020-09-06] MED LIST: LACTATED RINGERS 1,000 ML IV SCH; LIDOCAINE 1% (10MG/ML) FOR IV START INTRADERMA ONE; MIDAZOLAM 2 MG/2 ML VIAL ONE; PHENYLEPHRINE-0.9% NACL SYG 1 MG/10 ML SYRINGE ONE; PROPOFOL 10 MG/ML 20 ML VIAL IV ONE
[2020-09-06 09:31] VITALS: TEMP 98.1
--- NOTE | 2020-09-06 10:12 | P.PCN ---
Date of Procedure: 09/06/20 Procedure(s) Performed: Brief history: Patient is a pleasant 44-year-old white female scheduled for an elective upper endoscopy as well as colonoscopy as a part of evaluation of epigastric pain, abdominal fullness abdominal bloating and alternating diarrhea and constipation for the last 6 months duration. Procedure performed: Esophagogastroduodenoscopy with biopsy Colonoscopy with snare polypectomy and biopsy Preoperative diagnosis: Abdominal pain/abdominal bloating Alternating diarrhea and constipation Anesthesia: MAC Procedure: After informed consent was obtained from the patient was brought into the endoscopy unit and IV sedation was administered by anesthesia under continuous monitoring. Initially upper endoscopy was done. The Olympus GF 160 video endoscope was inserted inserted into the mouth and esophagus intubated without any difficulty and was gradually advanced into the stomach and duodenum and carefully examined. The bulb and second part of the duodenum appeared normal. Biopsies were done from the duodenum to rule out celiac disease. The scope was then withdrawn into the stomach adequately insufflated with air and upon careful examination the antrum had erosive gastritis and a 5 mm antral ulcer that was biopsied. The body, cardia and fundus appeared normal. The scope was then withdrawn into the esophagus. The GE junction was located at 40 cm to the incisors. It appeared regular with no erythema erosions or ulcerations. Rest of the esophagus appeared normal. Patient tolerated the procedure well. At this time the patient continued to remain sedation. Initial digital rectal examination was normal. Olympus CF 160 video colonoscope was then inserted into the rectum and gradually advanced to the cecum without any difficulty. Careful examination was performed as the scope was gradually being withdrawn. The prep was excellent. The cecum, ascending colon, transverse colon, descending colon, appeared normal. Mild: There was a 3 mm polyp that was removed by cold biopsy. In the proximal rectum there were 2 polyps measuring 5 mm in size both of which were broad-based removed by snare polypectomy. Retroflexion was performed in the rectum and no lesions were noted. Patient tolerated the procedure well. Impression: 1. Upper endoscopy revealed 5 mm antral ulcer and antral erosive gastritis[default value] 2. Colonoscopy revealed 3 mm sigmoid colon polyp status post cold biopsy and 1 cm 2 broad-based proximal rectal polyps status post polypectomy Recommendations: Findings of this examination were discussed with the patient as well as her family. She was advised to follow with the biopsy results. If the biopsy shows an adenoma she can have a repeat colonoscopy in 5 years. She will be seen in office in 2 weeks
[2020-09-06 10:31] VITALS: BP 101/68; PULSE 94; RESP 17
== END ==
LOC: ORWHC2ENDO 08:53
PROVIDERS: ATTEND Internal Medicine Gastroenterology
DX: K63.5 Polyp of colon (principal); K62.1 Rectal polyp; K29.60 Other gastritis without bleeding; K25.9 Gastric ulcer, unspecified as acute or chronic, without hemorrhage or perforation; F17.200 Nicotine dependence, unspecified, uncomplicated; E07.9 Disorder of thyroid, unspecified; Z88.5 Allergy status to narcotic agent; Z79.899 Other long term (current) drug therapy; Z98.51 Tubal ligation status
CPT/HCPCS: 81025; 88305; 45380; 45385; 43239; J2250; J2370; J2704

== ENCOUNTER → 2021-12-08 | Outpatient (CLI) | payer BC ==
--- NOTE | 2021-12-09 10:18 | MM ---
Reason for exam: screening (asymptomatic). Last mammogram was performed 1 year and 3 months ago. History: Patient is postmenopausal and history of other cancer. Family history of premenopausal breast cancer in paternal cousin at age 30. Took hormonal contraceptives for 5 years. Physical Findings: A clinical breast exam by your physician is recommended on an annual basis and results should be correlated with mammographic findings. MG Screening Mammo w CAD Bilateral CC and MLO view(s) were taken. XCCL view(s) were taken of the right breast. Prior study comparison: August 30, 2020, bilateral MG screening mammo w CAD. February 05, 2009, bilateral digital screening mammogram. The breast tissue is heterogeneously dense. This may lower the sensitivity of mammography. There is no discrete abnormality. ASSESSMENT: Negative, BI-RAD 1 RECOMMENDATION: Routine screening mammogram of both breasts in 1 year.
== END | disposition home or self-care (01) ==
LOC: RADMAMWWP 07:12
PROVIDERS: ATTEND Family Medicine
DX: Z12.31 Encounter for screening mammogram for malignant neoplasm of breast (principal); Z78.0 Asymptomatic menopausal state; Z80.3 Family history of malignant neoplasm of breast
CPT/HCPCS: 77067

== ENCOUNTER 2023-06-11 19:23 | Inpatient (IN) | payer BC ==
[2023-06-11] MEDS ORDERED: SODIUM CHLORIDE 0.9% 1,000 ML IV STA ×2 (19:58→21:31)
[2023-06-11] MEDS ORDERED: KETOROLAC 15 MG/ML 1 ML VIAL IVP STA (20:03)
[2023-06-11 20:24] LABS: Basophils % (A) 0 %; Eosinophils # (A) 0.3 k/uL (0-0.7); Eosinophils % (A) 2 %; HCT 36.3 % (34.0-46.0); HGB 12.2 gm/dL (11.4-16.0); Lymphocytes # (A) 0.9 k/uL (1.0-4.8); Lymphocytes % (A) 8 %; MCH 28.4 pg (25.0-35.0); MCHC 33.6 g/dL (31.0-37.0); MCV 84.6 fL (80.0-100.0); Mean Platelet Volume 7.8; Monocytes # (A) 0.6 k/uL (0-1.0); Monocytes % (A) 5 %; Neutrophils # (A) 9.8 k/uL (1.3-7.7); Neutrophils % (A) 84 %; Platelet Count 282 k/uL (150-450); RDW 12.7 % (11.5-15.5); WBC 11.7 k/uL (3.8-10.6)
[2023-06-11 20:40] LABS: Appearance,Urine Cloudy (Clear); Bilirubin,Urine Negative (Negative); Blood,Urine Small (Negative); Color,Urine Yellow; Glucose,Urine (UA) Negative (Negative); Ketones,Urine Negative (Negative); Leukocyte Esterase,Urine Negative (Negative); Mucus,Urine Few /hpf; Nitrite,Urine Negative (Negative); PH, Urine 5.5 (5.0-8.0); Protein,Urine Trace (Negative); RBC,Urine 10 /hpf (0-5); Specific Gravity,Urine 1.025 (1.001-1.035); Squamous Epithelial Cell,Urine 3 /hpf (0-4); Urobilinogen,Urine <2.0 mg/dL (<2.0); WBC,Urine <1 /hpf (0-5)
[2023-06-11 21:06] LABS: ALT 26 U/L (4-34); AST 27 U/L (14-36); African American GFR (CKD) >90 (>60 ml/min/1.73 sqM); Albumin 4.8 g/dL (3.5-5.0); Alkaline Phosphatase 53 U/L (38-126); Anion Gap 12 mmol/L; Blood Urea Nitrogen 20 mg/dL (7-17); Calcium 9.1 mg/dL (8.4-10.2); Carbon Dioxide 22 mmol/L (22-30); Chloride 105 mmol/L (98-107); Glucose 96 mg/dL (74-99); Lipase 160 U/L (23-300); Non-African American GFR(CKD) >90 (>60 ml/min/1.73 sqM); Sodium 139 mmol/L (137-145); Total Bilirubin 0.5 mg/dL (0.2-1.3); Total Protein 7.9 g/dL (6.3-8.2)
--- NOTE | 2023-06-11 21:15 | US ---
EXAMINATION TYPE: US abdomen limited DATE OF EXAM: 06/11/2023 COMPARISON: NONE CLINICAL INDICATION: Female, 47 years old with history of RUQ pain; severe RUQ pain x 1 day, burping, unable to eat/ drink without pain TECHNIQUE: Multiple sonographic images of the right upper quadrant are obtained. FINDINGS: EXAM MEASUREMENTS: Liver Length: 14.2 cm Gallbladder Wall: 0.3 cm CBD: 0.4 cm Right Kidney: 10.0x7.4x4.1 cm Pancreas: Only a small portion of the pancreatic neck is seen. Remainder is obscured by bowel gas sh adowing. Liver: wnl Gallbladder: 1cm echogenic area with posterior shadowing seen within GB neck/ cystic duct. Borderlin e gallbladder distention. Borderline wall thickening. Evidence for sonographic Cohen's sign: Yes CBD: wnl Right Kidney: Central cyst measuring 1.1x1.0x0.9cm. No hydronephrosis. IMPRESSION: 1. A 1 cm stone seen at the neck of the gallbladder, possibly in the cystic duct. Sonographic Cohen sign is reported positive. Correlate for early acute cholecystitis. 2. No biliary ductal dilatation.
[2023-06-11] MEDS ORDERED: PIPERACILLIN-TAZOBACTAM 3.375 GM in SODIUM CHLORIDE 0.9% 100 ML IVPB STA (21:17)
[2023-06-11] MEDS ORDERED: HYDROmorphone 0.5 MG/0.5 ML SYRINGE IVP STA (21:25)
[2023-06-11] MEDS ORDERED: NALOXONE 0.4 MG/ML 1 ML VIAL IV PRN (21:29)
[2023-06-11] MEDS ORDERED: HYDROmorphone 0.5 MG/0.5 ML SYRINGE IVP PRN (21:32)
[2023-06-11] MEDS: ONDANSETRON 4 MG/2 ML VIAL IVP PRN (21:57)
--- NOTE | 2023-06-11 23:37 | ED ---
Abdominal Pain HPI - General Chief Complaint: Abdominal Pain Stated Complaint: right side pain Time Seen by Provider: 06/11/23 19:57 Source: patient Mode of arrival: ambulatory Limitations: no limitations - History of Present Illness Initial Comments: Patient is a 47/-year-old female presents to emergency department for abdominal pain. This started yesterday in the middle upper abdomen. There is radiation to the right side. Patient does nauseous no vomiting. She had a couple episodes of diarrhea today, nonbloody. No fever or chills. No urinary symptoms. No history of abdominal surgery. - Related Data Home Medications Medication Instructions Recorded Confirmed Multivitamins, Thera [Multivitamin 1 tab PO AC-BRKFST 09/04/20 06/11/23 (formulary)] Allergies Allergy/AdvReac Type Severity Reaction Status Date / Time codeine Allergy Rash/Hives Verified 06/11/23 21:56 Review of Systems ROS Statement: Those systems with pertinent positive or pertinent negative responses have been documented in the HPI. ROS Other: All systems not noted in ROS Statement are negative. Past Medical History Past Medical History: No Reported History Additional Past Medical History / Comment(s): Chronic tobacco use and dependence, substance abuse. History of Any Multi-Drug Resistant Organisms: None Reported Past Surgical History: Orthopedic Surgery, Tubal Ligation Additional Past Surgical History / Comment(s): NovaSure ablation in 2011, right rotator cuff repair 2, tubal ligation, basal cell cancer removed from the left side of the Past Psychological History: Anxiety, Depression Smoking Status: Vaper Past Alcohol Use History: Occasional Past Drug Use History: Marijuana - Past Family History Mother Family Medical History: No Reported History Father Family Medical History: No Reported History Sister(s) Family Medical History: No Reported History Daughter(s) Family Medical History: No Reported History Son(s) Family Medical History: No Reported History General Exam Limitations: no limitations General appearance: alert Eye exam: Present: normal appearance, PERRL, EOMI. Absent: scleral icterus, conjunctival injection, periorbital swelling Respiratory exam: Present: normal lung sounds bilaterally. Absent: respiratory distress, wheezes, rales, rhonchi, stridor Cardiovascular Exam: Present: regular rate, normal rhythm, normal heart sounds. Absent: systolic murmur, diastolic murmur, rubs, gallop, clicks GI/Abdominal exam: Present: soft, tenderness (RUQ, epigastric), normal bowel sounds. Absent: distended, guarding, rebound, rigid Neurological exam: Present: alert Psychiatric exam: Present: normal affect, normal mood Skin exam: Present: warm, dry, intact, normal color. Absent: rash Course Vital Signs 06/11/23 06/11/23 19:34 22:00 Temperature 99.3 F Pulse Rate 77 78 Respiratory 18 18 Rate Blood Pressure 96/67 113/64 O2 Sat by Pulse 98 99 Oximetry Medical Decision Making - Medical Decision Making Was pt. sent in by a medical professional or institution (, PA, WAITER/WAITRESS TAVERN, urgent care, hospital, or prison...) When possible be specific @ -No Did you speak to anyone other than the patient for history (EMS, parent, family, police, friend...)? What history was obtained from this source @ -No Did you review nursing and triage notes (agree or disagree)? Why? @ -I reviewed and agree with nursing and triage notes Were old charts reviewed (outside hosp., previous admission, EMS record, old EKG, old radiological studies, urgent care reports/EKG's, prison records)? Report findings @ -No old charts were reviewed Differential Diagnosis (chest pain, altered mental status, abdominal pain women, abdominal pain men, vaginal bleeding, weakness, fever, dyspnea, syncope, headache, dizziness, GI bleed, back pain, seizure, CVA, palpatations, mental health)? @ Differential Abdominal Pain Women: Appendicitis, Cholecystitis, diverticulosis, ischemic bowel, pancreatitis, hepatitis, UTI, gastroenteritis, AAA, incarcerated hernia, bowel obstruction, constipation, inflammatory bowel, hepatitis, peptic ulcer disease, splenic infarction, perforated viscus, vulvitis, ovarian torsion, PID, kidney stone, placenta abruption, this is not meant to be an all-inclusive list EKG interpreted by me (3pts min.). @ -As above X-rays interpreted by me (1pt min.). @ -None done CT interpreted by me (1pt min.). @ -None done U/S interpreted by me (1pt. min.). @ -1 cm stone at the neck of the gallbladder, possibly cystic duct. No biliary duct dilation. Borderline gallbladder distention, borderline wall thickening What testing was considered but not performed or refused? (CT, X-rays, U/S, labs)? Why? @ -None What meds were considered but not given or refused? Why? @ -None Did you discuss the management of the patient with other professionals (professionals i.e. , PA, WAITER/WAITRESS TAVERN, lab, RT, psych nurse, group social worker, senior partner, teacher, electronic warfare officer, case filler)? Give summary @ -No Was smoking cessation discussed for >3mins.? @ -No Was critical care preformed (if so, how long)? @ -No Were there social determinants of health that impacted care today? How? (Homel essness, low income, unemployed, alcoholism, drug addiction, transportation, low edu. Level, literacy, decrease access to med. care, halfway, rehab)? @ -No Was there de-escalation of care discussed even if they declined (Discuss DNR or withdrawal of care, Hospice)? DNR status @ -No What co-morbidities impacted this encounter? (DM, HTN, Smoking, COPD, CAD, Cancer, CVA, ARF, Chemo, Hep., AIDS, mental health diagnosis, sleep apnea, morbid obesity)? @ -None Was patient admitted / discharged? Hospital course, mention meds given and route, prescriptions, significant lab abnormalities, going to OR and other pertinent info. @ -Patient presenting for epigastric pain. She is nontoxic appearing. Laboratory studies obtained. Mild leukocytosis of 11.7. Liver enzymes are normal. US interpreted by myself showing 1 cm stone at gallbladder neck possibly cystic duct with borderline gallbladder distention, borderline wall thickening. Zosyn initiated patient to be admitted to Dr. Martini for further evaluation and management of cholelithiasis possibly early cholecystitis. Patient NPO Undiagnosed new problem with uncertain prognosis? @ -No Drug Therapy requiring intensive monitoring for toxicity (Heparin, Nitro, Insulin, Cardizem)? @ -No Were any procedures done? @ -No Diagnosis/symptom? @ -Cholelithiasis Acute, or Chronic, or Acute on Chronic? @ -Acute Uncomplicated (without systemic symptoms) or Complicated (systemic symptoms)? @ -Uncomplicated Side effects of treatment? @ -No Exacerbation, Progression, or Severe Exacerbation? @ -No Poses a threat to life or bodily function? How? (Chest pain, [place], [place], pneumonia, PE, COPD, DKA, ARF, appy, cholecystitis, CVA, Diverticulitis, Homicidal, Suicidal, threat to staff... and all critical care pts) @ -No Dr. Moncada is my attending - Lab Data Result diagrams: 06/11/23 19:58 06/11/23 19:58 Lab Results 06/11/23 06/11/23 06/11/23 Range/Units 19:58 19:58 19:59 WBC 11.7 H (3.8-10.6) k/uL RBC 4.30 (3.80-5.40) m/uL Hgb 12.2 (11.4-16.0) gm/dL Hct 36.3 (34.0-46.0) % MCV 84.6 (80.0-100.0) fL MCH 28.4 (25.0-35.0) pg MCHC 33.6 (31.0-37.0) g/dL RDW 12.7 (11.5-15.5) % Plt Count 282 (150-450) k/uL MPV 7.8 Neutrophils % 84 % Lymphocytes % 8 % Monocytes % 5 % Eosinophils % 2 % Basophils % 0 % Neutrophils # 9.8 H (1.3-7.7) k/uL Lymphocytes # 0.9 L (1.0-4.8) k/uL Monocytes # 0.6 (0-1.0) k/uL Eosinophils # 0.3 (0-0.7) k/uL Basophils # 0.0 (0-0.2) k/uL Sodium 139 (137-145) mmol/L Potassium 4.0 (3.5-5.1) mmol/L Chloride 105 (98-107) mmol/L Carbon Dioxide 22 (22-30) mmol/L Anion Gap 12 mmol/L BUN 20 H (7-17) mg/dL Creatinine 0.68 (0.52-1.04) mg/dL Est GFR (CKD-EPI)AfAm >90 (>60 ml/min/1.73 sqM) Est GFR (CKD-EPI)NonAf >90 (>60 ml/min/1.73 sqM) Glucose 96 (74-99) mg/dL Plasma Lactic Acid Maurisio (0.7-2.0) mmol/L Calcium 9.1 (8.4-10.2) mg/dL Total Bilirubin 0.5 (0.2-1.3) mg/dL AST 27 (14-36) U/L ALT 26 (4-34) U/L Alkaline Phosphatase 53 (38-126) U/L Total Protein 7.9 (6.3-8.2) g/dL Albumin 4.8 (3.5-5.0) g/dL Lipase 160 (23-300) U/L Urine Color Yellow Urine Appearance Cloudy H (Clear) Urine pH 5.5 (5.0-8.0) Ur Specific [place] 1.025 (1.001-1.035) Urine Protein Trace H (Negative) Urine Glucose (UA) Negative (Negative) Urine Ketones Negative (Negative) Urine Blood Small H (Negative) Urine Nitrite Negative (Negative) Urine Bilirubin Negative (Negative) Urine Urobilinogen <2.0 (<2.0) mg/dL Ur Leukocyte Esterase Negative (Negative) Urine RBC 10 H (0-5) /hpf Urine WBC <1 (0-5) /hpf Ur Squamous Epith Cells 3 (0-4) /hpf Urine Mucus Few H (None) /hpf Urine HCG, Qual (Not Detectd) 06/11/23 06/11/23 Range/Units 19:59 19:59 WBC (3.8-10.6) k/uL RBC (3.80-5.40) m/uL Hgb (11.4-16.0) gm/dL Hct (34.0-46.0) % MCV (80.0-100.0) fL MCH (25.0-35.0) pg MCHC (31.0-37.0) g/dL RDW (11.5-15.5) % Plt Count (150-450) k/uL MPV Neutrophils % % Lymphocytes % % Monocytes % % Eosinophils % % Basophils % % Neutrophils # (1.3-7.7) k/uL Lymphocytes # (1.0-4.8) k/uL Monocytes # (0-1.0) k/uL Eosinophils # (0-0.7) k/uL Basophils # (0-0.2) k/uL Sodium (137-145) mmol/L Potassium (3.5-5.1) mmol/L Chloride (98-107) mmol/L Carbon Dioxide (22-30) mmol/L Anion Gap mmol/L BUN (7-17) mg/dL Creatinine (0.52-1.04) mg/dL Est GFR (CKD-EPI)AfAm (>60 ml/min/1.73 sqM) Est GFR (CKD-EPI)NonAf (>60 ml/min/1.73 sqM) Glucose (74-99) mg/dL Plasma Lactic Acid Maurisio 0.7 (0.7-2.0) mmol/L Calcium (8.4-10.2) mg/dL Total Bilirubin (0.2-1.3) mg/dL AST (14-36) U/L ALT (4-34) U/L Alkaline Phosphatase (38-126) U/L Total Protein (6.3-8.2) g/dL Albumin (3.5-5.0) g/dL Lipase (23-300) U/L Urine Color Urine Appearance (Clear) Urine pH (5.0-8.0) Ur Specific [place] (1.001-1.035) Urine Protein (Negative) Urine Glucose (UA) (Negative) Urine Ketones (Negative) Urine Blood (Negative) Urine Nitrite (Negative) Urine Bilirubin (Negative) Urine Urobilinogen (<2.0) mg/dL Ur Leukocyte Esterase (Negative) Urine RBC (0-5) /hpf Urine WBC (0-5) /hpf Ur Squamous Epith Cells (0-4) /hpf Urine Mucus (None) /hpf Urine HCG, Qual Not Detected (Not Detectd) Disposition Clinical Impression: Cholelithiasis Disposition: [facility]MITT[facility] Condition: Fair
[2023-06-12] MEDS: MELATONIN 5 MG TABLET PO SCH ×2 (00:38→21:58)
[2023-06-12] MEDS: MORPHINE SULFATE 2 MG/ML SYRINGE IVP PRN ×2 (02:34→07:36)
--- NOTE | 2023-06-12 03:38 | P.CONS ---
History of Present Illness - Reason for Consult Consult date: 06/12/23 Medical evaluation - History of Present Illness 47-year-old female no significant past medical history She is coming in for abdominal pain a few days duration got worse yesterday for which she decided come to the hospital she describes severe sharp pain in the epigastric region radiating to the right shoulder and right side of the abdomen associated with nausea but no vomiting had episodes of diarrhea but no bleeding denies any fevers or chills denies any unsanitary food or drink. She said she was having intermittent episodes of milder forms of this pain over the past few months however got worse over the past couple days. Patient denies tobacco smoking and illicit drugs or alcohol review of systems Pertinent positives as noted in HPI. All other systems were reviewed and are negative on exam Constitutional: No acute distress, conversant, pleasant Eyes: Anicteric sclerae, moist conjunctiva, Pupils equal round reactive to light ENMT: NC/AT Oropharynx clear, no erythema, or exudates Neck: Supple, no masses, or JVD No carotid bruits No thyromegaly Lungs: Clear to auscultation Clear to percussion Normal respiratory effort, no accessory muscle use Cardiovascular: Heart regular in rate and rhythm, No murmurs, gallops, or rubs No peripheral edema Abdominal: Soft Severe tenderness to deep palpation of the right subchondral attack and epigastric region, with some tenderness diffusely over the abdomen, voluntary guarding, no rebound or rigidity, Cohen sign positive Abdomen moving with respiration Normoactive bowel sounds No hepatomegaly, No splenomegaly No palpable mass No abdominal wall hernia noted Skin: Normal temperature, tone, texture, turgor Extremities: No digital cyanosis No clubbing Pedal pulses intact and symmetrical Radial pulses intact and symmetrical No calf tenderness Psychiatric: Alert and oriented to person, place and time Appropriate affect fair judgement Neuro Muscles Strength 5/5 in all 4 extremities Sensation to light touch grossly present throughout Cranial nerves II-XII grossly intact Lymphatics: no palpable cervical or supraclavicular lymph nodes Past Medical History Past Medical History: No Reported History Additional Past Medical History / Comment(s): Chronic tobacco use and depen dence, substance abuse. History of Any Multi-Drug Resistant Organisms: None Reported Past Surgical History: Orthopedic Surgery, Tubal Ligation Additional Past Surgical History / Comment(s): NovaSure ablation in 2011, right rotator cuff repair 2, tubal ligation, basal cell cancer removed from the left side of the Past Psychological History: Anxiety, Depression Smoking Status: Vaper Past Alcohol Use History: Occasional Past Drug Use History: Marijuana - Past Family History Mother Family Medical History: No Reported History Father Family Medical History: No Reported History Sister(s) Family Medical History: No Reported History Daughter(s) Family Medical History: No Reported History Son(s) Family Medical History: No Reported History Medications and Allergies Home Medications Medication Instructions Recorded Confirmed Type Multivitamins, Thera [Multivitamin 1 tab PO AC-BRKFST 09/04/20 06/11/23 History (formulary)] Allergies Allergy/AdvReac Type Severity Reaction Status Date / Time codeine Allergy Rash/Hives Verified 06/11/23 21:56 Physical Exam Vitals: Vital Signs Temp Pulse Pulse Resp BP BP Pulse Ox 06/11/23 22:54 98.5 F 70 19 108/71 99 06/11/23 22:00 78 18 113/64 99 06/11/23 19:34 99.3 F 77 18 96/67 98 Intake and Output 06/11/23 06/11/23 06/12/23 14:59 22:59 06:59 Other: Weight 58.967 kg 58.967 kg Results CBC & Chem 7: 06/11/23 19:58 06/11/23 19:58 Labs: Abnormal Lab Results - Last 24 Hours (Table) 06/11/23 06/11/23 06/11/23 Range/Units 19:58 19:58 19:59 WBC 11.7 H (3.8-10.6) k/uL Neutrophils # 9.8 H (1.3-7.7) k/uL Lymphocytes # 0.9 L (1.0-4.8) k/uL BUN 20 H (7-17) mg/dL Urine Appearance Cloudy H (Clear) Urine Protein Trace H (Negative) Urine Blood Small H (Negative) Urine RBC 10 H (0-5) /hpf Urine Mucus Few H (None) /hpf Assessment and Plan Assessment: 47-year-old female no significant past medical history coming in with 1 day history of severe epigastric and right upper abdominal pain radiating [facility] she was found to have acute cholecystitis admitted surgery Acute cholecystitis Nothing by mouth Follow-up cultures Continue Zosyn Further management per surgical team Pain control with morphine Zofran when necessary for nausea vomiting IV fluid hydration normal saline Leukocytosis 11.7 Abdominal ultrasound showed 1 cm gallstone with evidence of sonographic positive Cohen sign suggestive of acute cholecystitis Insomnia Ambien when necessary Full code DVT prophylaxis heparin subcu 3 times a day Thank you for this consultation
[2023-06-12] MEDS: ZOLPIDEM 5 MG TAB PO PRN ×2 (03:54→23:50)
[2023-06-12 07:35] VITALS: RESP 16
[2023-06-12] MEDS: ONDANSETRON 4 MG/2 ML VIAL IVP PRN (07:41)
--- NOTE | 2023-06-12 09:19 | P.GSHP ---
History of Present Illness H&P Date: 06/12/23 Chief Complaint: Abdominal pain, nausea and vomiting Patient began feeling poorly several days ago. Been having trouble eating and having nausea. Doesn't really feel like drinking. Didn't fill well on that it got worse yesterday so she came to the emergency department and workup showed cholelithiasis with probable acute cholecystitis. She's had some intermittent mild episodes of this in the past. She denies jaundice, acholic stools or tea-colored urine. No blood in the stools or dark tarry stool - Review of Systems All systems: negative Past Medical History Past Medical History: No Reported History Additional Past Medical History / Comment(s): Chronic tobacco use and dependence, substance abuse. History of Any Multi-Drug Resistant Organisms: None Reported Past Surgical History: Orthopedic Surgery, Tubal Ligation Additional Past Surgical History / Comment(s): NovaSure ablation in 2010, right rotator cuff repair 2, tubal ligation, basal cell cancer removed from the left side of the Past Psychological History: Anxiety, Depression Smoking Status: Vaper Past Alcohol Use History: Occasional Past Drug Use History: Marijuana - Past Family History Mother Family Medical History: No Reported History Father Family Medical History: No Reported History Sister(s) Family Medical History: No Reported History Daughter(s) Family Medical History: No Reported History Son(s) Family Medical History: No Reported History Medications and Allergies Home Medications Medication Instructions Recorded Confirmed Type Multivitamins, Thera [Multivitamin 1 tab PO AC-BRKFST 09/04/20 06/11/23 History (formulary)] Allergies Allergy/AdvReac Type Severity Reaction Status Date / Time codeine Allergy Rash/Hives Verified 06/11/23 21:56 Surgical - Exam Osteopathic Statement: *. No significant issues noted on an osteopathic structural exam other than those noted in the History and Physical/Consult. Vital Signs Temp Pulse Resp BP Pulse Ox 99.3 F 77 18 96/67 98 06/11/23 19:34 06/11/23 19:34 06/11/23 19:34 06/11/23 19:34 06/11/23 19:34 - General well developed, well nourished, no distress - Neck trachea midline - Respiratory normal expansion, clear to auscultation - Cardiovascular Rhythm: regular - Abdomen Abdomen: soft, tender (Right upper quadrant), bowel sounds (Hypoactive) - Integumentary No jaundice Results - Labs 06/11/23 19:58 06/11/23 19:58 Abnormal Lab Results - Last 24 Hours (Table) 06/11/23 06/11/23 06/11/23 Range/Units 19:58 19:58 19:59 WBC 11.7 H (3.8-10.6) k/uL Neutrophils # 9.8 H (1.3-7.7) k/uL Lymphocytes # 0.9 L (1.0-4.8) k/uL BUN 20 H (7-17) mg/dL Urine Appearance Cloudy H (Clear) Urine Protein Trace H (Negative) Urine Blood Small H (Negative) Urine RBC 10 H (0-5) /hpf Urine Mucus Few H (None) /hpf Diabetes panel 06/11/23 Range/Units 19:58 Sodium 139 (137-145) mmol/L Potassium 4.0 (3.5-5.1) mmol/L Chloride 105 (98-107) mmol/L Carbon Dioxide 22 (22-30) mmol/L BUN 20 H (7-17) mg/dL Creatinine 0.68 (0.52-1.04) mg/dL Glucose 96 (74-99) mg/dL Calcium 9.1 (8.4-10.2) mg/dL AST 27 (14-36) U/L ALT 26 (4-34) U/L Alkaline Phosphatase 53 (38-126) U/L Total Protein 7.9 (6.3-8.2) g/dL Albumin 4.8 (3.5-5.0) g/dL Calcium panel 06/11/23 Range/Units 19:58 Calcium 9.1 (8.4-10.2) mg/dL Albumin 4.8 (3.5-5.0) g/dL Pituitary panel 06/11/23 Range/Units 19:58 Sodium 139 (137-145) mmol/L Potassium 4.0 (3.5-5.1) mmol/L Chloride 105 (98-107) mmol/L Carbon Dioxide 22 (22-30) mmol/L BUN 20 H (7-17) mg/dL Creatinine 0.68 (0.52-1.04) mg/dL Glucose 96 (74-99) mg/dL Calcium 9.1 (8.4-10.2) mg/dL Adrenal panel 06/11/23 Range/Units 19:58 Sodium 139 (137-145) mmol/L Potassium 4.0 (3.5-5.1) mmol/L Chloride 105 (98-107) mmol/L Carbon Dioxide 22 (22-30) mmol/L BUN 20 H (7-17) mg/dL Creatinine 0.68 (0.52-1.04) mg/dL Glucose 96 (74-99) mg/dL Calcium 9.1 (8.4-10.2) mg/dL Total Bilirubin 0.5 (0.2-1.3) mg/dL AST 27 (14-36) U/L ALT 26 (4-34) U/L Alkaline Phosphatase 53 (38-126) U/L Total Protein 7.9 (6.3-8.2) g/dL Albumin 4.8 (3.5-5.0) g/dL - Imaging US - abdomen: report reviewed Assessment and Plan (1) Biliary colic Current Visit: Yes Status: Acute Code(s): K80.50 - CALCULUS OF BILE DUCT W/O CHOLANGITIS OR CHOLECYST W/O OBST SNOMED Code(s): 27876745 (2) Cholelithiasis Current Visit: Yes Status: Acute Code(s): K80.20 - CALCULUS OF GALLBLADDER W/O CHOLECYSTITIS W/O OBSTRUCTION SNOMED Code(s): 592548126 Plan: Patient remains symptomatic. She appears to have a stone impacted in the cystic duct. This is the best served by doing a laparoscopic cholecystectomy, possible open. The procedure, risks and complications along with usual postoperative course was discussed. Questions were encouraged and answered. Will receive DVT and ulcer prophylaxis. Prophylactic antibiotics.
[2023-06-12] MEDS: SODIUM CHLORIDE 0.9% 1,000 ML IV SCH ×2 (09:41→15:08)
[2023-06-12] MEDS: PIPERACILLIN-TAZOBACTAM 3.375 GM in SODIUM CHLORIDE 0.9% 100 ML IVPB SCH ×3 (09:42→23:50)
[2023-06-12] MEDS ORDERED: SCOPOLAMINE 1 MG/72 HR PATCH TRANSDERM ONE ×2 (10:50→12:33)
[2023-06-12] MEDS ORDERED: DEXAMETHASONE SOD PHOSPHATE 4 MG/ML 1 ML VIAL IV ONE (10:50)
[2023-06-12] MEDS ORDERED: droPERidol 5 MG/2 ML VIAL IVP ONE ×2 (10:50→12:38)
[2023-06-12] MEDS ORDERED: LIDOCAINE 1% (10MG/ML) FOR IV START INTRADERMA PRN (10:50)
[2023-06-12] MEDS: LACTATED RINGERS 1,000 ML IV SCH (11:02)
[2023-06-12] MEDS ORDERED: LACTATED RINGERS 1,000 ML IV ONE (12:30)
[2023-06-12] MEDS ORDERED: DEXAMETHASONE SOD PHOSPHATE 4 MG/ML 1 ML VIAL IVP ONE (12:38)
[2023-06-12] MEDS ORDERED: BUPIVACAINE (PF) 0.25% 10 ML VIAL SQ ONE ×2 (12:40→13:04)
[2023-06-12] MEDS ORDERED: LIDOCAINE 1%-EPI 1:100,000 50 ML VIAL SQ ONE ×2 (12:41→13:04)
[2023-06-12] MEDS ORDERED: GLYCOPYRROLATE 0.2 MG/ML 2 ML VIAL ONE (12:44)
[2023-06-12] MEDS ORDERED: ROCURONIUM 10 MG/ML (5 ML VIAL) IV ONE (12:44)
[2023-06-12] MEDS ORDERED: LIDOCAINE 4% LTA KIT (4 ML) TOPICAL ONE (12:44)
[2023-06-12] MEDS ORDERED: SUCCINYLCHOLINE CHLORIDE 200 MG/10 ML VIAL IV ONE (12:44)
[2023-06-12] MEDS ORDERED: NEOSTIGMINE 1 MG/ML 10 ML VIAL ONE (12:44)
[2023-06-12] MEDS ORDERED: LIDOCAINE 2% INJ 20 MG/ML (2 ML VIAL) ONE (12:44)
[2023-06-12] MEDS ORDERED: MIDAZOLAM 2 MG/2 ML VIAL ONE (12:44)
[2023-06-12] MEDS ORDERED: PROPOFOL 10 MG/ML 20 ML VIAL IV ONE (12:44)
[2023-06-12] MEDS ORDERED: fentaNYL (PF) 50 MCG/ML 2 ML AMP ONE (12:44)
[2023-06-12] MEDS ORDERED: HYDROcodone/APAP 5-325MG 1 EACH TAB PO PRN ×2 (13:40)
--- NOTE | 2023-06-12 13:40 | P.PCN ---
Date of Procedure: 06/12/23 Preoperative Diagnosis: Acute cholecystitis, cholelithiasis Postoperative Diagnosis: Acute cholecystitis, cholelithiasis Procedure(s) Performed: Laparoscopic cholecystectomy Anesthesia: FAREED Surgeon: Yaz Martini Estimated Blood Loss (ml): 10 Pathology: other Condition: stable Disposition: PACU Indications for Procedure: Patient presented with abdominal pain and nausea. Workup was suggestive of acute cholecystitis secondary to a gallstone in the Cortés's pouch. Description of Procedure: The patient is taken to the OR where she is prepped and draped in the usual sterile manner under a general endotracheal anesthetic. An infraumbilical incision was made and a Veress needle was placed into the abdominal cavity. Pneumoperitoneum was established with CO2 gas. Sites are chosen for accessory trochars needs are placed through small skin incisions. The gallbladder is edematous and distended. Tediously the cystic artery and cystic duct are dissected free. They are triply clipped and cut. The cystic duct prominent is further secured with 0 PDS Endoloop. The gallbladder is dissected free from the liver bed. Small bleeding points were controlled with electrocautery. The gallbladder is placed into a specimen retrieval bag. The liver bed is reexamined and noted to be hemostatic. The excess irrigant was suctioned out. Then note peritoneum was released. The trochars were removed. The fascia at the umbilicus was opened slightly to allow for removal of the gallbladder. The fascia at the umbilicus was then closed with 0 Vicryl. The skin incisions were closed with 4-0 Vicryl in a subcuticular manner. Steri-Strips and dressings w ere applied. She tolerated the procedure without difficulty and was taken to recovery room in satisfactory condition. According to or personnel, all counts were correct.
[2023-06-12] MEDS ORDERED: HYDROmorphone 0.5 MG/0.5 ML SYRINGE IVP PRN (13:42)
[2023-06-12] MEDS ORDERED: MORPHINE SULFATE 4 MG/ML SYRINGE IVP ONE (13:55)
[2023-06-12] MEDS: KETOROLAC 15 MG/ML 1 ML VIAL IVP SCH ×2 (17:14→23:49)
[2023-06-13] MEDS: SODIUM CHLORIDE 0.9% 1,000 ML IV SCH ×2 (02:18→07:57)
[2023-06-13] MEDS: KETOROLAC 15 MG/ML 1 ML VIAL IVP SCH ×2 (05:06→13:04)
[2023-06-13] MEDS ORDERED: HYDROmorphone 0.5 MG/0.5 ML SYRINGE IVP PRN (07:00)
[2023-06-13] MEDS ORDERED: ONDANSETRON 4 MG/2 ML VIAL IVP PRN (07:00)
[2023-06-13 07:32] VITALS: BP 90/54; PULSE 52; TEMP 98.2
[2023-06-13] MEDS: LACTATED RINGERS 1,000 ML IV SCH (07:34)
[2023-06-13] MEDS: PIPERACILLIN-TAZOBACTAM 3.375 GM in SODIUM CHLORIDE 0.9% 100 ML IVPB SCH (07:57)
[2023-06-13] MEDS: ONDANSETRON 4 MG/2 ML VIAL IVP PRN (09:05)
--- NOTE | 2023-06-13 11:06 | P.DS ---
Providers Date of admission: 06/11/23 21:31 Expected date of discharge: 06/13/23 Attending physician: Yaz Martini Consults: 06/11/23 21:29 Consult Physician ONCE Consulting Provider: Tato Lua Consult Reason/Comments: medical management Do you want consulting provider notified?: Yes Primary care physician: Stated None - Discharge Diagnosis(es) (1) Biliary colic Current Visit: Yes Status: Acute (2) Cholelithiasis Current Visit: Yes Status: Acute Hospital Course: The patient presented to the emergency department with several days of pain. Workup showed probable cholecystitis from a stone in Cortés's pouch. She was admitted to the hospital and given IV antibiotics. She was subsequently taken the OR where she underwent laparoscopic cholecystectomy. By postop day 1 she was feeling better. Having expected incisional pain. No nausea or vomiting. Requesting medication for nausea sometimes the pain medication causes this. Procedures: Laparoscopic cholecystectomy Patient Condition at Discharge: Good Plan - Discharge Summary Discharge Rx Participant: Yes New Discharge Prescriptions: New HYDROcodone/APAP 5-325MG [[place] 5-325] 1 - 2 tab PO Q4H PRN #15 tab PRN Reason: Pain Ondansetron [Zofran] 4 mg PO Q8HR PRN #10 tab PRN Reason: Nausea No Action Multivitamins, Thera [Multivitamin (formulary)] 1 tab PO AC-BRKFST Discharge Medication List Multivitamins, Thera [Multivitamin (formulary)] 1 tab PO AC-BRKFST 09/04/20 [Hi story] HYDROcodone/APAP 5-325MG [[place] 5-325] 1 - 2 tab PO Q4H PRN #15 tab 06/13/23 [Rx] Ondansetron [Zofran] 4 mg PO Q8HR PRN #10 tab 06/13/23 [Rx] Follow up Appointment(s)/Referral(s): None,Stated [Primary Care Provider] - 1 Week Yaz Martini DO [Doctor of Osteopathic Medicine] - 2 Weeks Patient Instructions/Handouts: Low Fat Diet (DC) Activity/Diet/Wound Care/Special Instructions: The dressings may removed on Wednesday then you may shower. No tub baths or swimming for 1 week. Remove Steri-Strips in 1 week. Expect some bruising by the bellybutton. Use ice to the incisions were 1-2 days. He may use Motrin or Naprosyn instead of the pain pills. Low-fat diet. Call if questions or concerns Discharge Disposition: HOME SELF-CARE
--- NOTE | 2023-06-13 11:27 | P.PN ---
Subjective Progress Note Date: 06/13/23 Subjective: Patient seen and examined at bedside. Has mild right upper quadrant pain with some radiation to shoulder on the right. Denies passing any gas or having bowel movements. Denies any other complaints. Pertinent positives and negatives as discussed above, a complete review of systems was performed and all other systems are negative. Vitals Signs Reviewed. General: nontoxic, no distress, appears at stated age Derm: warm, dry, surgical site dressing appears clean, dry, intact Head: atraumatic, normocephalic, symmetric Eyes: EOMI, no lid lag, anicteric sclera Mouth: no lip lesion, mucus membranes moist Cardiovascular: S1S2 reg, no murmur Lungs: CTA bilateral, no rhonchi, no rales , no accessory muscle use Abdominal: soft, nontender to palpation, no guarding, no appreciable organomegaly Ext: no gross muscle atrophy, no edema, no contractures Neuro: CN II-XI grossly intact, no focal neuro deficits Psych: Alert, oriented, appropriate affect Data Reviewed Today: Pertinent Labs: No new labs Imaging: No new imaging Assessment and Plan: Acute cholecystitis status post laparoscopic cholecystectomy Leukocytosis, reactive Prerenal azotemia -Pain management per surgery team -Remains on IV Zosyn and IV fluids -No need to continue antibiotics at discharge Patient is otherwise medically optimized for discharge home when deemed appropriate by her primary surgical team. Objective - Vital Signs Vital signs: Vital Signs Temp 98.2 F 06/13/23 07:31 Pulse 52 L 06/13/23 07:31 Resp 16 06/13/23 10:36 BP 90/54 06/13/23 07:31 Pulse Ox 100 06/13/23 07:31 FiO2 Intake & Output 06/12/23 06/13/23 06/13/23 18:59 06:59 18:59 Intake Total 500 200 Output Total 10 Balance 490 200 Intake: IV 500 Oral 200 Output: Estimated Blood Loss 10 Other: # Voids 2 2 3 - Labs CBC & Chem 7: 06/11/23 19:58 06/11/23 19:58
== END 2023-06-13 12:15 | disposition home or self-care (01) | DRG 419 ==
LOC: EC 19:23 → 4SSUR 21:31
PROVIDERS: ADMIT Surgery; ATTEND Surgery
PROC: 0FT44ZZ Resection of Gallbladder, Percutaneous Endoscopic Approach (ICD-10-PCS; principal; 2023-06-12 12:00)
DX: K80.10 Calculus of gallbladder with chronic cholecystitis without obstruction (principal); F19.10 Other psychoactive substance abuse, uncomplicated; F17.210 Nicotine dependence, cigarettes, uncomplicated; G47.00 Insomnia, unspecified; Z88.5 Allergy status to narcotic agent
CPT/HCPCS: 36415; 76705; 80053; 81001; 81025; 83605; 83690; 85025; 87040; 88304; 96361; 96365; 96375; 99285

== ENCOUNTER → 2023-12-22 | Outpatient (CLI) | payer BC ==
--- NOTE | 2023-12-24 19:18 | MM ---
Reason for Exam: Screening (asymptomatic). Last screening mammogram was performed 12 month(s) ago. Patient History: Menarche at age 13. First Full-Term at age 18. Postmenopausal. Patient used Hormonal Contraceptives for 5 years. Paternal cousin had breast cancer, age 30. Risk Values: Alise 5 year model risk: 0.6%. NCI Lifetime model risk: 6.1%. Prior Study Comparison: 08/30/2020 Bilateral Screening Mammogram, [facility]. 12/08/2021 Bilateral Screening Mammogram, [facility]. 12/21/2022 Bilateral MG screening mammo w CAD, [facility]. Tissue Density: The breast tissue is heterogeneously dense. This may lower the sensitivity of mammography. Findings: Analyzed By CAD. Unchanged bilateral asymmetric densities. There is no suspicious group of microcalcifications or new suspicious mass in either breast. Overall Assessment: Benign, BI-RAD 2 Management: Screening Mammogram of both breasts in 1 year. . Patient should continue monthly self-breast exams. A clinical breast exam by your physician is recommended on an annual basis. This exam should not preclude additional follow-up of suspicious palpable abnormalities. Note on Alise scores and lifetime risk: 1. A Alise score greater than 3% is considered moderate risk. If this is the case, consider specialist referral to assess eligibility for a risk reducing agent. 2. If overall lifetime risk for the development of breast cancer is 20% or higher, the patient may qualify for future screening with alternating mammogram and breast MRI. Electronically signed and approved by: Giovanni Brown M.D. Radiologist
== END | disposition home or self-care (01) ==
LOC: RADMAMWWP 15:24
PROVIDERS: ATTEND Family Medicine
DX: Z12.31 Encounter for screening mammogram for malignant neoplasm of breast (principal); Z80.3 Family history of malignant neoplasm of breast; Z78.0 Asymptomatic menopausal state
CPT/HCPCS: 77067

== ENCOUNTER → 2024-04-13 | Outpatient (CLI) | payer BC | END | disposition home or self-care (01) | LOC: LABWHC1 15:48 | PROVIDERS: ATTEND Family Medicine | DX: L12.0 Bullous pemphigoid (principal); L57.0 Actinic keratosis; Z85.828 Personal history of other malignant neoplasm of skin | CPT/HCPCS: 36415 ==

== ENCOUNTER → 2024-08-18 | Outpatient (CLI) | payer BC ==
--- NOTE | 2024-08-18 23:09 | MR ---
EXAMINATION TYPE: MR cervical spine wo/w con DATE OF EXAM: 08/18/2024 COMPARISON: HISTORY: neck pain for 6 months, pain radiates down both arms. CONTRAST: Performed utilizing 6 mL intravenous Gadavist gadolinium contrast. TECHNIQUE: Multiplanar multiecho imaging on a 3.0 Rosario magnet is performed through the cervical spin e. FINDINGS: The craniovertebral junction is normal. Vertebral body alignment is normal. C7-T1: No focal disc herniation or significant disc bulge is evident. No spinal canal stenosis or n eural foraminal stenosis is present. C6-7: Minimal subligamentous disc herniation is present with anterior thecal sac contact. No cord con tact is evident. No spinal canal stenosis present. Neural foramen are patent.. C5-6: Subligamentous disc herniation is present with mild anterior thecal sac impression. No cord con tact is evident. No spinal canal stenosis present. Moderate right foraminal narrowing is present.. C4-5: No focal disc herniation is evident. In the sagittal plane there appears to be subligamentous d isc extension posterior to C4. No cord contact or spinal canal stenosis present. Some left foraminal narrowing is present.. C3-4: Broad-based disc bulge present with mild anterior thecal sac contact. Subligamentous disc exten mya may be present. Neural foramen are patent. C2-3: No focal disc herniation or significant disc bulge is evident. No spinal canal stenosis or frank ral foraminal stenosis is present. No abnormal enhancement is evident. The cord maintains normal signal throughout its visualized course . Vertebral body heights are preserved. Disc heights appear preserved. IMPRESSION: 1. Minimal subligamentous disc herniations without significant thecal sac compression C3-4 through C6 -7 [facility], Workstation: [id number], 08/18/2024 11:07 PM
== END | disposition home or self-care (01) ==
LOC: RADMRIMAIN 15:27
PROVIDERS: ATTEND Family Medicine
CPT/HCPCS: 72156

== ENCOUNTER → 2025-02-02 | Outpatient (CLI) | payer BC ==
--- NOTE | 2025-02-02 07:28 | MM ---
Reason for Exam: Screening (asymptomatic). Last mammogram was performed 1 year(s) and 2 month(s) ago. Patient History: Menarche at age 13. First Full-Term at age 18. Postmenopausal. Patient used Hormonal Contraceptives for 5 years. Paternal cousin had breast cancer, age 30. Risk Values: Alise 5 year model risk: 0.6%. NCI Lifetime model risk: 6.0%. Prior Study Comparison: 12/08/2021 Bilateral Screening Mammogram, [facility]. 12/21/2022 Bilateral MG screening mammo w CAD, [facility]. 12/22/2023 Bilateral MG screening mammo w CAD, [facility]. Tissue Density: The breasts are heterogeneously dense, which may obscure small masses. Findings: Analyzed By CAD. There is no suspicious group of microcalcifications or new suspicious mass in either breast. Overall Assessment: Negative, BI-RAD 1 Management: Screening Mammogram of both breasts in 1 year. . Patient should continue monthly self-breast exams. A clinical breast exam by your physician is recommended on an annual basis. This exam should not preclude additional follow-up of suspicious palpable abnormalities. Note on Alise scores and lifetime risk: 1. A Alise score greater than 3% is considered moderate risk. If this is the case, consider specialist referral to assess eligibility for a risk reducing agent. 2. If overall lifetime risk for the development of breast cancer is 20% or higher, the patient may qualify for future screening with alternating mammogram and breast MRI. [facility], , 02/02/2025 7:24 AM. Electronically signed and approved by: Walter Dunn M.D. Radiologis
[2025-02-02 11:02] LABS: Basophils # (A) 0.06 X 10*3/uL (0.00-0.10); Eosinophils % (A) 3.2 %; HCT 35.5 % (37.2-46.3); Lymphocytes # (A) 2.93 X 10*3/uL (0.90-5.00); Lymphocytes % (A) 46.4 %; MCH 26.6 pg (27.0-32.0); MCV 85.7 FL (80.0-97.0); Mean Platelet Volume 10.6 FL (9.5-12.2); Monocytes # (A) 0.58 X 10*3/uL (0.20-1.00); Monocytes % (A) 9.2 %; NRBC Per 100 WBC 0 X 10*3/uL (0.00-0.01); Neutrophils # (A) 2.53 X 10*3/uL (1.80-7.70); Platelet Count 262 X 10*3/uL (140-440); RBC 4.14 X 10*6/uL (4.10-5.20); RDW 12.6 % (11.5-14.5); WBC 6.31 X 10*3/uL (4.50-10.00)
[2025-02-02 11:06] LABS: Appearance,Urine Clear (Clear); Bilirubin,Urine Negative (Negative); Blood,Urine Negative (Negative); Color,Urine Yellow (Yellow); Ketones,Urine Negative (Negative); Nitrite,Urine Negative (Negative); PH, Urine 6.5; Specific Gravity,Urine 1.008 (1.001-1.030); Urobilinogen,Urine 0.2 E.U./DL
[2025-02-02 11:10] LABS: Thyroid Peroxidase Antibodies 14.1 U/mL (0.0-33.0)
[2025-02-02 11:14] LABS: % Iron Saturation 26.01 (12.00-45.00); ALT 23 U/L (8-44); AST 23 U/L (13-35); Albumin 4.7 g/dL (3.8-4.9); Albumin/Globulin Ratio 1.74 Ratio (1.60-3.17); Alkaline Phosphatase 38 U/L (41-126); BUN/Creat Ratio 18.88 Ratio (12.00-20.00); Blood Urea Nitrogen 15.1 mg/dL (9.0-27.0); Calcium 9.6 mg/dL (8.7-10.3); Carbon Dioxide 27.2 mmol/L (21.6-31.8); Chloride 104 mmol/L (96-109); Chol/HDL Ratio 2.17 Ratio; Globulin 2.7 g/dL (1.6-3.3); Glucose 76 mg/dL (70-110); Iron 84 UG/DL (50-170); LDL Cholesterol,Calculated 61.6 mg/dL (0.0-131.0); Potassium 4.2 mmol/L (3.5-5.5); Sodium 143 mmol/L (135-145); T4, Free (Free Thyroxine) 1.35 ng/dL (0.80-1.80); Total Bilirubin 0.3 mg/dL (0.3-1.2); Total Iron Binding Capacity 323 UG/DL (228-460); Total Protein 7.4 g/dL (6.2-8.2); VLDL Calculation 13.36 mg/dL (5.00-40.00)
== END | disposition home or self-care (01) ==
LOC: RADMAMWWP 06:57
PROVIDERS: ATTEND Family Medicine
DX: Z12.31 Encounter for screening mammogram for malignant neoplasm of breast (principal); E05.90 Thyrotoxicosis, unspecified without thyrotoxic crisis or storm; R89.9 Unspecified abnormal finding in specimens from other organs, systems and tissues; R92.333 Mammographic heterogeneous density, bilateral breasts; Z78.0 Asymptomatic menopausal state; Z80.3 Family history of malignant neoplasm of breast; Z92.0 Personal history of contraception
CPT/HCPCS: 77063; 77067; 80053; 80061; 81003; 82728; 83036; 83540; 83550; 84432; 84439; 84443; 84481; 85025; 86376